=== PATIENT | female | born 1935 | race Caucasian/White ===

== ENCOUNTER 2021-11-07 09:24 | Inpatient (IN) | payer MEDICARE, OTHER ==
[~2021-11-07] VITALS: Ht 166.4 cm; Wt 90.5 kg
[~2021-11-07 09:24] MED LIST: AMOXICILLIN500 MG PO; ASPIRIN EC81 M1 PO; ASPIRIN EC81 MG PO; ATIVAN1 MG PO; BACLOFEN 10MG T10 MG PO; BENZONATATE200 MG PO; BUMETANIDE2 MG PO; BUMEX1 MG PO; CELEXA20 MG PO; CITALOPRAM HBR20 MG PO; COUMADIN4 MG PO; COUMADIN5 MG PO; DOCUSATE SODIU100 MG PO; DUONEB 2.5-0.5M1 AMP INH; FOLIC ACID 400 MCG; FOLIC ACID1 MG PO; HYDROCODON-ACE1 EAC4 PO; ISOSORBIDE MONO60 M1 PO; KLOR-CON M1010 MEQ PO; LORAZEPAM1 MG PO; MAG-OXIDE 400M400 MG PO; MAGNESIUM OXID400 M1 PO; METOLAZONE2.5 MG PO; METOPROLOL SUCC25 MG PO; NITROQUIK SL0.4 MG SL; NORCO 5-325 TA1 EACH PO; PANTOPRAZOLE SO40 MG PO; POTASSIUM CHLO10 ME1 PO; PRAVASTATIN SOD20 MG PO; PROTONIX 40MG T40 MG PO; PROZAC20 MG PO; SINGULAIR10 MG PO; TOPROL XL 50 MG50 MG PO; WARFARIN SODIUM4 MG PO
[2021-11-07 10:14] LABS: BASOPHIL 0.9 % (0-2); EOSINOPHIL 1.1 % (0-7); HCT 37.1 % (37.0-47.0); HGB 11.1 g/dl (12.5-16.0); LYMPHOCYTE 9.2 % (15-48); MCH 28.9 pg (25.0-31.0); MCHC 29.9 g/dL (32.0-36.0); MCV 96.6 fL (78.0-100.0); MONOCYTE 11.6 % (0-12); MPV 10.9 fL (6.0-9.5); NEUTROPHIL 76.6 % (41-80); NRBC 0; PLT 108 K/uL (150-400); RBC 3.84 M/uL (4.20-5.40); RDW 13.2 % (11.5-14.0); WBC 5.4 K/uL (4.0-10.5)
[2021-11-07 10:32] LABS: ALBUMIN 3.4 g/dL (3.4-5.0); BILIRUBIN - TOTAL 0.9 mg/dL (0.2-1.0); BUN/CREAT RATIO (CALC) 22.4 RATIO; CREATININE 1.74 mg/dL (0.51-0.95); GLOBULIN (CALCULATION) 3.5 g/dL; POTASSIUM 5.3 mmol/L (3.5-5.1); TOTAL PROTEIN 6.9 g/dL (6.4-8.2)
[2021-11-07 11:08] LABS: CORONAVIRUS 2019 SARS-COV-2 NEGATIVE (NEGATIVE); INFLUENZA A NAA NEGATIVE (NEGATIVE)
[2021-11-07] MEDS ORDERED: METOLAZONE 5MG T5 MG PO (15:54)
[2021-11-07] MEDS ORDERED: DIAMOX250 MG PO (18:29)
[2021-11-07] MEDS ORDERED: VENTOLIN (2.5 MG/3 M INH (18:32)
[2021-11-07] MEDS ORDERED: BIOFREEZE89 ML MC (18:33)
[2021-11-07] MEDS ORDERED: CELEXA20 MG PO (18:34)
[2021-11-07] MEDS ORDERED: COLACE100 MG PO ×2 (18:34)
[2021-11-07] MEDS ORDERED: COMBIVENT RESPIM4 GM INH (18:35)
[2021-11-07] MEDS ORDERED: FEOSOL325 MG PO (18:36)
[2021-11-07] MEDS ORDERED: CYMBALTA 30MG C30 MG PO (18:36)
[2021-11-07] MEDS ORDERED: FOLIC ACID1 MG PO (18:36)
[2021-11-07] MEDS ORDERED: ELIQUIS2.5 MG PO (18:36)
[2021-11-07] MEDS ORDERED: ROBITUSSIN100 MG/5 M PO (18:37)
[2021-11-07] MEDS ORDERED: ISOSORBIDE MONO60 MG PO (18:37)
[2021-11-07] MEDS ORDERED: MAG-OXIDE 400M400 MG PO (18:37)
[2021-11-07] MEDS ORDERED: TOPROL XL 25MG25 MG PO (18:39)
[2021-11-07] MEDS ORDERED: PRILOSEC20 MG PO (18:39)
[2021-11-07] MEDS ORDERED: NORCO 5-325 TA1 EACH PO (18:39)
[2021-11-07] MEDS ORDERED: PREDNISONE 20MG20 MG PO (18:40)
[2021-11-07] MEDS ORDERED: PRAVACHOL20 MG PO (18:40)
[2021-11-07] MEDS ORDERED: ONDANSETRON HCL4 MG PO (18:40)
[2021-11-07] MEDS ORDERED: ALDACTONE25 MG PO (18:41)
[2021-11-07] MEDS ORDERED: XANAX0.25 MG PO (18:42)
[2021-11-07] MEDS ORDERED: VITAMIN D350 MCG PO (18:42)
[2021-11-07 18:51] LABS: INR 1.44 (0.9-1.2); PROTHROMBIN TIME 16.8 SECONDS (11.8-13.4)
[2021-11-08 06:42] LABS: BASOPHIL 0.9 % (0-2); EOSINOPHIL 1.1 % (0-7); HCT 35.2 % (37.0-47.0); HGB 10.9 g/dl (12.5-16.0); LYMPHOCYTE 8.2 % (15-48); MCH 29.2 pg (25.0-31.0); MCV 94.4 fL (78.0-100.0); MONOCYTE 11.3 % (0-12); MPV 10.6 fL (6.0-9.5); NRBC 0; PLT 108 K/uL (150-400); RBC 3.73 M/uL (4.20-5.40); RDW 13.2 % (11.5-14.0); WBC 5.6 K/uL (4.0-10.5)
[2021-11-08 07:01] LABS: BUN/CREAT RATIO (CALC) 24.3 RATIO; CREATININE 1.69 mg/dL (0.51-0.95); POTASSIUM 4.2 mmol/L (3.5-5.1)
[2021-11-09 07:54] LABS: CREATININE 1.82 mg/dL (0.51-0.95); POTASSIUM 3.5 mmol/L (3.5-5.1)
[2021-11-09] MEDS ORDERED: BUMEX1 MG PO (12:49)
[2021-11-09] MEDS ORDERED: ELIQUIS2.5 MG PO (14:53)
--- NOTE | 2021-11-09 16:32 | NUR ---
11/09/21 Patient may return to [facility] per [facility].
== END 2021-11-09 17:00 | DRG 291 ==
LOC: FER 09:24 → FMS 16:30
PROVIDERS: Emergency Medicine; Internal Medicine Cardiovascular Disease; ADMIT Allergy & Immunology Allergy
PROC: B24BZZ4 Ultrasonography of Heart with Aorta, Transesophageal (ICD-10-PCS; principal; 2021-11-08)
DX: I13.0 Hypertensive heart and chronic kidney disease with heart failure and stage 1 through stage 4 chronic kidney disease, or unspecified chronic kidney disease (principal); I50.33 Acute on chronic diastolic (congestive) heart failure; N17.9 Acute kidney failure, unspecified; N18.30 Chronic kidney disease, stage 3 unspecified; I25.10 Atherosclerotic heart disease of native coronary artery without angina pectoris; J44.9 Chronic obstructive pulmonary disease, unspecified; F17.210 Nicotine dependence, cigarettes, uncomplicated; I48.91 Unspecified atrial fibrillation; I27.20 Pulmonary hypertension, unspecified; Z20.822 Contact with and (suspected) exposure to COVID-19; E87.5 Hyperkalemia; R91.8 Other nonspecific abnormal finding of lung field; Z66 Do not resuscitate; F41.9 Anxiety disorder, unspecified; Z88.6 Allergy status to analgesic agent; Z99.81 Dependence on supplemental oxygen; Z79.82 Long term (current) use of aspirin; Z82.49 Family history of ischemic heart disease and other diseases of the circulatory system; Z90.49 Acquired absence of other specified parts of digestive tract; Z95.1 Presence of aortocoronary bypass graft; Z95.2 Presence of prosthetic heart valve; Z95.5 Presence of coronary angioplasty implant and graft; I25.2 Old myocardial infarction
CPT/HCPCS: 36415; 71045; 71250; 80048; 80053; 83880; 84484; 85025; 85610; 93005; 94640; 96374; 97162; 97166; 97530-GP; 97535; J1650; U0002